=== PATIENT | female | born 1965 | race Caucasian/White ===

== ENCOUNTER 2017-08-03 09:55 | Emergency (ER) | payer OTHER ==
[~2017-08-03] VITALS: Ht 154.9 cm; Wt 61.2 kg
[~2017-08-03 09:55] MED LIST: PROTONIX40 MG; SYNTHROID75 MCG
== END 2017-08-03 18:09 | disposition home or self-care (01) ==
LOC: ER 09:55
DX: R07.89 Other chest pain (principal)